=== PATIENT | male | born 1955 | race Caucasian/White ===

== ENCOUNTER 2017-02-28 13:35 | Emergency (ER) | payer MEDICAID ==
[~2017-02-28] VITALS: Ht 167.6 cm; Wt 68.0 kg
[~2017-02-28 13:35] MED LIST: LEVE500T9 PO; METF500T2 PO
[2017-02-28 15:15] VITALS: BP 126/82
--- NOTE | 2017-02-28 17:02 | NUR ---
C/O PRODUCTIVE COUGH 1 MONTH WITH YELLOWIS/WHITE PLEGM, PRESSURE BACK; DENIES N/V/D, BLOOD SUGAR 84 HX; DM RX; METFORMIN
[2017-02-28] MEDS ORDERED: ALBUTEROL SULFATE/IPRATROPIU 3 ML SOL IH ONE (17:25)
[2017-02-28] MEDS ORDERED: methylPREDNISolone SS 125 MG in WATER STERILE 2 ML IM ONE (17:25)
[2017-02-28 17:50] VITALS: BP 109/66
--- NOTE | 2017-02-28 17:54 | NUR ---
Note tate in EDM - 02/28/17 at 1755 by BLANCA Patient discharged with v/s stable. Written and verbal after care instructions given and explained. Patient verbalized understanding. Ambulatory with steady gait. All questions addressed prior to discharge. Advised to follow up with PMD.
== END 2017-02-28 17:57 | disposition home or self-care (01) ==
LOC: MED 13:35
DX: J20.9 Acute bronchitis, unspecified (principal); E11.9 Type 2 diabetes mellitus without complications
CPT/HCPCS: 82948; 94640; 94760; 96372; 99283; J2930; J7620